=== PATIENT | male | born 1965 ===

== ENCOUNTER 2022-07-09 05:19 | Day surgery (SDC) | payer OTHER ==
[~2022-07-09] VITALS: Ht 177.8 cm; Wt 111.1 kg
[~2022-07-09 05:19] MED LIST: GLUMETZA500 MG PO; HORIZANT300 MG PO; LEVOTHY PO; SIMVASTA PO; ZESTRIL20 MG PO
[2022-07-09] MEDS ORDERED: MELOXICAM7.5 MG PO (08:47)
[2022-07-09] MEDS ORDERED: CEPHALEXIN500 M1 PO (08:48)
== END 2022-07-09 11:50 | disposition home or self-care (01) ==
LOC: CIR.AMB 05:19
PROVIDERS: ATTEND Surgery
DX: N20.1 Calculus of ureter (principal); Z20.822 Contact with and (suspected) exposure to COVID-19; I10 Essential (primary) hypertension; G47.33 Obstructive sleep apnea (adult) (pediatric); Z99.89 Dependence on other enabling machines and devices; E03.9 Hypothyroidism, unspecified; E11.9 Type 2 diabetes mellitus without complications; Z96.0 Presence of urogenital implants

== ENCOUNTER → 2022-11-29 | Outpatient (CLI) | payer OTHER ==
[~2022-11-29] MED LIST changes: +CEPHALEXIN500 M1 PO; +MELOXICAM7.5 MG PO
== END | disposition home or self-care (01) ==
LOC: SONOGRAMA 09:12
PROVIDERS: ATTEND Surgery
DX: N20.1 Calculus of ureter (principal)